=== PATIENT | male | born 1960 | race Caucasian/White ===

== ENCOUNTER 2018-01-27 10:25 | Emergency (ER) | payer SELFPAY ==
[~2018-01-27] VITALS: Ht 172.7 cm; Wt 85.0 kg
[~2018-01-27 10:25] MED LIST: CYCL-36 PO; IBUP-232 PO; Z.0.NO CURRENT MEDS
[2018-01-27] MEDS ORDERED: MORPHINE SULFATE 4 MG/ML INJ IV PUSH ONE ×2 (10:30→13:15)
[2018-01-27 10:33] VITALS: BP 197/73; PULSE 84; RESP 18; TEMP 98.3; O2SAT 100
[2018-01-27 11:03] LABS: AUTOMATED NEUTROPHIL # 6.5 TH/MM3 (1.8-7.7); BASOPHIL % 0.5 % (0.0-2.0); EOSINOPHIL # 0.1 TH/MM3 (0-0.4); EOSINOPHIL % 1.4 % (0.0-4.0); HEMATOCRIT 41.3 % (39.0-51.0); HEMOGLOBIN 14.5 GM/DL (13.0-17.0); LYMPH % 20.1 % (9.0-44.0); LYMPHOCYTE # 1.9 TH/MM3 (1.0-4.8); MEAN CORPUSCULAR HGB CONC 35.2 % (32.0-36.0); MEAN PLATELET VOLUME 8.3 FL (7.0-11.0); MONO % 9.2 % (0.0-8.0); MONOCYTE # 0.9 TH/MM3 (0-0.9); NEUT % 68.8 % (16.0-70.0); PLATELET COUNT 256 TH/MM3 (150-450); RED BLOOD COUNT 4.69 MIL/MM3 (4.50-5.90); RED CELL DISTRIBUTION WIDTH 13.2 % (11.6-17.2); WHITE BLOOD COUNT 9.5 TH/MM3 (4.0-11.0)
[2018-01-27 11:06] LABS: PROTHROMBIN TIME - PATIENT 10.1 SEC (9.8-11.6)
--- NOTE | 2018-01-27 11:17 | RADRPT ---
EXAM DATE/TIME: 01/27/2018 10:47 [facility] COMPARISON: None. INDICATIONS : <<Left sided pelvis pain after fall yesterday.>> MEDICAL HISTORY : None. SURGICAL HISTORY : Left hip replacement. ENCOUNTER: Initial ACUITY: 2 days PAIN SCORE: 10/10 LOCATION: Left pelvis FINDINGS: A single frontal view of the pelvis demonstrates previous left hip replacement. On this single AP vie w the prosthetic femoral head is at least subluxed and lies along the superior aspect of the acetabul ar cup. Mild osteophytes of the right hip. No acute fracture identified. CONCLUSION: 1. No acute fracture. Prosthetic left femoral head does not appear to be well-seated within the prost hetic acetabulum at the total hip replacement. Arik eDmpsey MD on January 27, 2018 at 11:13 Board Certified Radiologist. This report was verified electronically.
--- NOTE | 2018-01-27 11:31 | RADRPT ---
EXAM DATE/TIME: 01/27/2018 10:53 [facility] COMPARISON: PELVIS AP ONLY, January 27, 2018, 10:47. INDICATIONS : Left proximal femur pain after fall yesterday. MEDICAL HISTORY : None. SURGICAL HISTORY : Left hip replacement. ENCOUNTER: Initial ACUITY: 2 days PAIN SCORE: 10/10 LOCATION: Left proximal femur. FINDINGS: The patient is post left hip arthroplasty. The femoral component appears quite high riding in the ruperto tabular clot. It appears to be still within the top and as such exam would suggest severe polyethylen e wear. The visualized portion of pelvis and the left femur are intact. CONCLUSION: 1. The femoral component is quite high riding within the acetabular cup. I believe the head is still within the acetabular cup and probably represents some severe polyethylene wear. The hip should be ma nipulated clinically to ensure is not dislocated. 2. No acute fracture is seen. Puneet Bello MD on January 27, 2018 at 11:25 Board Certified Radiologist. This report was verified electronically.
[2018-01-27 11:34] LABS: ALBUMIN 4.2 GM/DL (3.4-5.0); AST (GOT) 34 U/L (15-37); BICARBONATE 23.1 MEQ/L (21.0-32.0); BLOOD UREA NITROGEN 12 MG/DL (7-18); CALCIUM 9.1 MG/DL (8.5-10.1); CHLORIDE 106 MEQ/L (98-107); GLOMERULAR FILTRATION RATE 69 ML/MIN (>89); GLUCOSE,RANDOM 108 MG/DL (74-106); SODIUM (NA) 139 MEQ/L (136-145)
[2018-01-27 11:37] LABS: ALKALINE PHOSPHATASE 49 U/L (45-117); ALT (GPT) 47 U/L (12-78); TOTAL BILIRUBIN ADULT 0.7 MG/DL (0.2-1.0); TOTAL PROTEIN 7.9 GM/DL (6.4-8.2)
[2018-01-27] MEDS ORDERED: IOHEXOL 350 MG/ML 10 ML VIAL (for RAD DIAG) IVCONTRAST ONE (12:29)
--- NOTE | 2018-01-27 12:33 | RADRPT ---
EXAM DATE/TIME: 01/27/2018 12:16 [facility] COMPARISON: No previous studies available for comparison. INDICATIONS : Trauma. Fell 13 feet yesterday. RADIATION DOSE: 60.93 CTDIvol (mGy) MEDICAL HISTORY : Hypertension. SURGICAL HISTORY : Left hip replacement. ENCOUNTER: Initial ACUITY: 1 day PAIN SCALE: 2/10 LOCATION: cranial TECHNIQUE: Multiple contiguous axial images were obtained of the head. Using automated exposure control and adj ustment of the mA and/or kV according to patient size, radiation dose was kept as low as reasonably a chievable to obtain optimal diagnostic quality images. DICOM format image data is available electro nically for review and comparison. FINDINGS: CEREBRUM: The ventricles are normal for age. No evidence of midline shift, mass lesion, hemorrhage or acute in farction. No extra-axial fluid collections are seen. POSTERIOR FOSSA: The cerebellum and brainstem are intact. The 4th ventricle is midline. The cerebellopontine angle i s unremarkable. EXTRACRANIAL: The visualized portion of the orbits is intact. SKULL: The calvaria is intact. No evidence of skull fracture. CONCLUSION: No acute disease. Maged Sheth MD on January 27, 2018 at 12:31 Board Certified Radiologist. This report was verified electronically.
--- NOTE | 2018-01-27 12:50 | RADRPT ---
EXAM DATE/TIME: 01/27/2018 12:22 [facility] COMPARISON: No previous studies available for comparison. INDICATIONS : Trauma. Fell 12 feet yesterday. IV CONTRAST: 95 cc Omnipaque 350 (iohexol) IV ORAL CONTRAST: No oral contrast ingested. RADIATION DOSE: 18.90 CTDIvol (mGy) MEDICAL HISTORY : Hypertension. SURGICAL HISTORY : Left hip replacement. ENCOUNTER: Initial ACUITY: 1 day PAIN SCALE: 7/10 LOCATION: Abdomen. TECHNIQUE: Volumetric scanning of the abdomen and pelvis was performed. Using automated exposure control and ad justment of the mA and/or kV according to patient size, radiation dose was kept as low as reasonably achievable to obtain optimal diagnostic quality images. DICOM format image data is available electro nically for review and comparison. FINDINGS: LOWER LUNGS: The visualized lower lungs are clear. LIVER: Homogeneous density without lesion. There is no dilation of the biliary tree. No calcified gallston es. SPLEEN: Normal size without lesion. PANCREAS: Within normal limits. KIDNEYS: Normal in size and shape. There is no mass, stone or hydronephrosis. ADRENAL GLANDS: Within normal limits. VASCULAR: There is no aortic aneurysm. BOWEL/MESENTERY: Diverticulosis without diverticulitis. There is no free intraperitoneal air or fluid. ABDOMINAL WALL: Within normal limits. RETROPERITONEUM: There is no lymphadenopathy. BLADDER: No wall thickening or mass. REPRODUCTIVE: Within normal limits. INGUINAL: There is no lymphadenopathy or hernia. MUSCULOSKELETAL: Orthopedic hardware in the left hip. There is prominent lucency involving the left acetabulum and fas cial rami and the left. There is minimal fracture along the left ischial rami. There is fracture of t he right L2 and L3 transverse processes. There is fracture of the right 11th posterior rib. Scoliosis and degenerative changes thoracolumbar spine. CONCLUSION: 1. Orthopedic hardware left hip with prominent lucency throughout the acetabulum. There is minimal fr acture along the initial rami and the left. 2. Fractures of the right L2 and L3 transverse processes. 3. Minimal fracture right 11th rib. 4. No abdominal visceral injury. 5. Diverticulosis of the colon. Maged Sheth MD on January 27, 2018 at 12:44 Board Certified Radiologist. This report was verified electronically.
--- NOTE | 2018-01-27 12:58 | RADRPT ---
EXAM DATE/TIME: 01/27/2018 12:22 [facility] COMPARISON: CT ABDOMEN & PELVIS W CONTRAST, January 27, 2018, 12:22. INDICATIONS : Trauma fell 12 feet yesterday neck pain RADIATION DOSE: 20.64 CTDIvol (mGy) RADIATION DOSE: 18.90 CTDIvol (mGy) MEDICAL HISTORY : Hypertension. SURGICAL HISTORY : Left hip replacement. ENCOUNTER: Initial ACUITY: 1 day PAIN SCALE: 7/10 LOCATION: neck. TECHNIQUE: Volumetric scanning of the cervical spine was performed. Multiplanar reconstructions in the sagittal, coronal and oblique axial planes were performed. Using automated exposure control and adjustment o f the mA and/or kV according to patient size, radiation dose was kept as low as reasonably achievable to obtain optimal diagnostic quality images. DICOM format image data is available electronically f or review and comparison. FINDINGS: VERTEBRAE: Normal vertebral body height. ALIGNMENT: No evidence of subluxation. C2-C3: The bony spinal canal is normal in size. No evidence of disc bulge or herniation. The neural forami na are bilaterally patent. C3-C4: The bony spinal canal is normal in size. No evidence of disc bulge or herniation. The neural forami na are bilaterally patent. C4-C5: The bony spinal canal is normal in size. No evidence of disc bulge or herniation. The neural forami na are bilaterally patent. C5-C6: The bony spinal canal is normal in size. No evidence of disc bulge or herniation. The neural forami na are bilaterally patent. C6-C7: The bony spinal canal is normal in size. No evidence of disc bulge or herniation. The neural forami na are bilaterally patent. C7-T1: The bony spinal canal is normal in size. No evidence of disc bulge or herniation. The neural forami na are bilaterally patent. CONCLUSION: No fracture or subluxation. Maged Sheth MD on January 27, 2018 at 12:54 Board Certified Radiologist. This report was verified electronically.
--- NOTE | 2018-01-27 13:05 | RADRPT ---
EXAM DATE/TIME: 01/27/2018 12:22 [facility] COMPARISON: No previous studies available for comparison. INDICATIONS : Trauma. Fell 12 feet yesterday. RADIATION DOSE: 20.93 CTDIvol (mGy) MEDICAL HISTORY : Hypertension. SURGICAL HISTORY : Left hip replacement. ENCOUNTER: Initial ACUITY: 1 day PAIN SCALE: 7/10 LOCATION: neck TECHNIQUE: Volumetric scanning of the lumbar spine was performed. Multiplanar reconstructions in the sagittal, coronal and oblique axial planes were performed. Using automated exposure control and adjustment of the mA and/or kV according to patient size, radiation dose was kept as low as reasonably achievable t o obtain optimal diagnostic quality images. DICOM format image data is available electronically for review and comparison. FINDINGS: VERTEBRAE: Normal vertebral body height. No compression fracture. Fractures of the right L1, L2 and L3 transvers e processes. There is scoliosis and degenerative changes. ALIGNMENT: No evidence of subluxation. T12-L1: The thecal sac has a normal diameter. No evidence of disc bulge or protrusion. The neural foramina are patent bilaterally. L1-L2: Mild broad-based disc bulge without canal stenosis. The neural foramina are patent bilaterally. L2-L3: Mild broad-based disc bulge without canal stenosis. The neural foramina are patent bilaterally. L3-L4: Mild broad-based disc bulge without canal stenosis. The neural foramina are patent bilaterally. L4-L5: Mild broad-based disc bulge without canal stenosis. The neural foramina are patent bilaterally. L5-S1: Mild asymmetric right-sided protrusion abuts the ventral thecal sac and right S1 nerve root. No canal stenosis. The neural foramina are patent bilaterally. CONCLUSION: 1. Right-sided protrusion at L5-S1. No canal stenosis. 2. Multilevel disc bulges without canal stenosis. 3. Degenerative changes. 4. Fracture of the right L1-L3 transverse processes. Maged Sheth MD on January 27, 2018 at 13:00 Board Certified Radiologist. This report was verified electronically.
[2018-01-27 13:08] VITALS: BP 157/78; PULSE 77; RESP 18; O2SAT 100
--- NOTE | 2018-01-27 13:08 | RADRPT ---
EXAM DATE/TIME: 01/27/2018 12:22 [facility] COMPARISON: No previous studies available for comparison. INDICATIONS : Trauma. Fell 12 feet yesterday. RADIATION DOSE: 35.86 CTDIvol (mGy) ; Combined studies - Thoracic Spine/Lumbar Spine MEDICAL HISTORY : Hypertension. SURGICAL HISTORY : Left hip replacement. ENCOUNTER: Initial ACUITY: 1 day PAIN SCALE: 8/10 LOCATION: Bilateral Thoracic spine. TECHNIQUE: Volumetric scanning of the thoracic spine was performed. Multiplanar reconstructions in the sagittal , coronal and oblique axial planes were performed. Using automated exposure control and adjustment o f the mA and/or kV according to patient size, radiation dose was kept as low as reasonably achievable to obtain optimal diagnostic quality images. DICOM format image data is available electronically f or review and comparison. FINDINGS: The vertebral bodies of the thoracic spine are in normal alignment without evidence of subluxation. Vertebral body height is maintained. No fractures are seen. Prominent degenerative changes and dextr oscoliosis. Multiple anterior endplate osteophytes. Old mild to moderate compression deformity at T10 . Fracture of the right T10 transverse process of indeterminate age. T1-T2: Normal. T2-T3: The thecal sac has a normal diameter. No evidence of disc bulge or protrusion. T3-T4: The thecal sac has a normal diameter. No evidence of disc bulge or protrusion. T4-T5: The thecal sac has a normal diameter. No evidence of disc bulge or protrusion. T5-T6: The thecal sac has a normal diameter. No evidence of disc bulge or protrusion. T6-T7: The thecal sac has a normal diameter. No evidence of disc bulge or protrusion. T7-T8: The thecal sac has a normal diameter. No evidence of disc bulge or protrusion. T8-T9: The thecal sac has a normal diameter. No evidence of disc bulge or protrusion. T9-T10: The thecal sac has a normal diameter. No evidence of disc bulge or protrusion. T10-T11: The thecal sac has a normal diameter. No evidence of disc bulge or protrusion. T11-T12: The thecal sac has a normal diameter. No evidence of disc bulge or protrusion. T12-L1: The thecal sac has a normal diameter. No evidence of disc bulge or protrusion. CONCLUSION: 1. Old moderate compression deformity T10. 2. Degenerative changes without definite acute fracture. 3. Fracture of the right transverse process at T10, of indeterminate age. Maged Sheth MD on January 27, 2018 at 13:03 Board Certified Radiologist. This report was verified electronically.
--- NOTE | 2018-01-27 13:27 | PD ---
HPI Chief Complaint: Fall Time Seen by Provider: 10:30 Travel History International Travel<30 days: No Contact w/Intl Traveler<30days: No Traveled to known affect area: No History of Present Illness HPI Patient is a 57-year-old male who comes in complaining of back pain after he fell off the roof yesterday. He says he was trying to reach single his house when he slipped and fell. He does report loss of consciousness. He did get up with help from his and walk into the house. He complains of pain to his left hip and low back. He denies numbness or tingling. He denies headache. He has not taken anything for his pain. Severity is moderate. PFSH Past Medical History Hypertension: Yes Triglycerides - High: Yes ?: Not Past Surgical History Other Surgery: Yes (Skin graft to left forearm from snake bite) Social History Alcohol Use: Yes (on occasion) Tobacco Use: Yes Substance Use: Yes (THC daily) Allergies-Medications (Allergen,Severity, Reaction): Coded Allergies: No Known Allergies (Verified Adverse Reaction, Unknown, 01/27/18) Reported Meds & Prescriptions Reported Meds & Active Scripts Active Percocet (Oxycodone-Acetaminophen) 5-325 mg Tab 1 Tab PO Q6H PRN Review of Systems Except as stated in HPI: all other systems reviewed are Neg General / Constitutional: No: Fever, Chills Eyes: No: Blurred Vision HENT: No: Headaches Cardiovascular: No: Chest Pain or Discomfort Respiratory: No: Shortness of Breath Gastrointestinal: No: Nausea, Vomiting, Abdominal Pain Musculoskeletal: Positive: Pain Skin: No Rash, No Change in Pigmentation Neurologic: No: Sensory Disturbance Physical Exam Narrative GENERAL: Awake and alert, no acute distress. SKIN: Focused skin assessment warm/dry. No wounds. HEAD: Atraumatic. Normocephalic. EYES: Pupils equal and round. No scleral icterus. Extraocular movements intact. ENT: Mucous membranes pink and moist. NECK: Trachea midline. No JVD. CARDIOVASCULAR: Regular rate and rhythm. No murmur appreciated. RESPIRATORY: No accessory muscle use. Clear to auscultation. Breath sounds equal bilaterally. GASTROINTESTINAL: Abdomen soft, non-tender, nondistended. MUSCULOSKELETAL: No obvious deformities. No clubbing. No cyanosis. No edema. Tender to palpation to the right flank. No thoracic or lumbar tenderness. Pain with movement of the left hip, no tenderness to palpation of the pelvis. NEUROLOGICAL: Awake and alert. No obvious cranial nerve deficits. Motor grossly within normal limits. Normal speech. PSYCHIATRIC: Appropriate mood and affect; insight and judgment normal. Data Data Last Documented VS Vital Signs Date Time Temp Pulse Resp B/P (MAP) Pulse Ox O2 Delivery O2 Flow Rate FiO2 01/27/18 14:43 70 18 135/89 (104) 100 Room Air 01/27/18 10:[address] Brain W/O Iv Contrast(Rout) (01/27/18 ) Ct Cerv Spine W/O Contrast (01/27/18 ) Ct Thor Spine W/O Contrast (01/27/18 ) Ct Lumb Spine W/O Contrast (01/27/18 ) Ct Abd/Pel W Iv Contrast(Rout) (01/27/18 ) Pelvis, Ap Only (Routine) (01/27/18 ) Complete Blood Count With Diff (01/27/18 10:30) Comprehensive Metabolic Panel (01/27/18 10:30) Act Partial Throm Time (Ptt) (01/27/18 10:30) Prothrombin Time / Inr (Pt) (01/27/18 10:30) Morphine Inj (Morphine Inj) (01/27/18 10:30) Femur (Ap & Lat/2vws) (01/27/18 ) Iohexol 350 Inj (Omnipaque 350 Inj) (01/27/18 12:29) Morphine Inj (Morphine Inj) (01/27/18 13:15) Oxycodone-Acetamin 5-325 Mg (Percocet (01/27/18 14:30) Resp Incentive Spirometry (01/27/18 ) Ed Discharge Order (01/27/18 14:51) Collar [place] (01/27/18 ) Labs Laboratory Tests Test 01/27/18 10:30 White Blood Count 9.5 TH/MM3 Red Blood Count 4.69 MIL/MM3 Hemoglobin 14.5 GM/DL Hematocrit 41.3 % Mean Corpuscular Volume 88.0 FL Mean Corpuscular Hemoglobin 31.0 PG Mean Corpuscular Hemoglobin Concent 35.2 % Red Cell Distribution Width 13.2 % Platelet Count 256 TH/MM3 Mean Platelet Volume 8.3 FL Neutrophils (%) (Auto) 68.8 % Lymphocytes (%) (Auto) 20.1 % Monocytes (%) (Auto) 9.2 % Eosinophils (%) (Auto) 1.4 % Basophils (%) (Auto) 0.5 % Neutrophils # (Auto) 6.5 TH/MM3 Lymphocytes # (Auto) 1.9 TH/MM3 Monocytes # (Auto) 0.9 TH/MM3 Eosinophils # (Auto) 0.1 TH/MM3 Basophils # (Auto) 0.0 TH/MM3 CBC Comment DIFF FINAL Differential Comment Prothrombin Time 10.1 SEC Prothromb Time International Ratio 1.0 RATIO Activated Partial Thromboplast Time 24.1 SEC Blood Urea Nitrogen 12 MG/DL Creatinine 1.10 MG/DL Random Glucose 108 MG/DL Total Protein 7.9 GM/DL Albumin 4.2 GM/DL Calcium Level 9.1 MG/DL Alkaline Phosphatase 49 U/L Aspartate Amino Transf (AST/SGOT) 34 U/L Alanine Aminotransferase (ALT/SGPT) 47 U/L Total Bilirubin 0.7 MG/DL Sodium Level 139 MEQ/L Potassium Level 4.1 MEQ/L Chloride Level 106 MEQ/L Carbon Dioxide Level 23.1 MEQ/L Anion Gap 10 MEQ/L Estimat Glomerular Filtration Rate 69 ML/MIN MDM Medical Decision Making Medical Screen Exam Complete: Yes Emergency Medical Condition: Yes Medical Record Reviewed: Yes Differential Diagnosis ICH versus C-spine fracture versus thoracic spine fracture versus lumbar spine fracture versus pelvic fracture Narrative Course Patient is a 57-year-old male who comes in after falling off the roof. Exam shows pain to the right side of the back as well as pain with movement of his left hip. IV established, labs sent. Labs show no acute abnormalities. Given pain medicine. Last 24 hours Impressions [address] Spine CT 01/27/18 0000 Signed Impressions: Service Date/Time: Saturday, January 27, 2018 12:22 - CONCLUSION: 1. Old moderate compression deformity T10. 2. Degenerative changes without definite acute fracture. 3. Fracture of the right transverse process at T10, of indeterminate age. Maged Sheth MD Pelvis X-Ray 01/27/18 0000 Signed Impressions: Service Date/Time: Saturday, January 27, 2018 10:47 - CONCLUSION: 1. No acute fracture. Prosthetic left femoral head does not appear to be well-seated within the prosthetic acetabulum at the total hip replacement. Arik Dempsey MD Lumbar Spine CT 01/27/18 0000 Signed Impressions: Service Date/Time: Saturday, January 27, 2018 12:22 - CONCLUSION: 1. Right- sided protrusion at L5-S1. No canal stenosis. 2. Multilevel disc bulges without canal stenosis. 3. Degenerative changes. 4. Fracture of the right L1-L3 transverse processes. Maged Sheth MD Head CT 01/27/18 Signed Impressions: Service Date/Time: Saturday, January 27, 2018 12:16 - CONCLUSION: No acute disease. Maged Sheth MD Femur X-Ray 01/27/18 Signed Impressions: Service Date/Time: Saturday, January 27, 2018 10:53 - CONCLUSION: 1. The femoral component is quite high riding within the acetabular cup. I believe the head is still within the acetabular cup and probably represents some severe polyethylene wear. The hip should be manipulated clinically to ensure is not dislocated. 2. No acute fracture is seen. Puneet Bello MD Cervical Spine CT 01/27/18 Signed Impressions: Service Date/Time: Saturday, January 27, 2018 12:22 - CONCLUSION: No fracture or subluxation. Maged Sheth MD Abdomen/Pelvis CT 01/27/18 Signed Impressions: Service Date/Time: Saturday, January 27, 2018 12:22 - CONCLUSION: 1. Orthopedic hardware left hip with prominent lucency throughout the acetabulum. There is minimal fracture along the initial rami and the left. 2. Fractures of the right L2 and L3 transverse processes. 3. Minimal fracture right 11th rib. 4. No abdominal visceral injury. 5. Diverticulosis of the colon. Maged Sheth MD I spoke with Dr. Serrano of neurosurgery regarding the L2 and L3 fractures, he says nothing to be done. I spoke with Dr. Campos of orthopedics regarding the hip and pelvis, he also reports nothing to be done. Patient given additional pain medicine. He says he would like to try and go home. He is given an incentive spirometer and advised to use it several times a day. Given a prescription for Percocet. Advised to follow-up with orthopedics. Advised return anytime for any worsening symptoms. Diagnosis Primary Impression: Fall Qualified Codes: W19.XXXA - Unspecified fall, initial encounter Additional Impressions: Pelvic fracture Qualified Codes: S32.602A - Unspecified fracture of left ischium, initial encounter for closed fracture Fracture of lumbar spine Qualified Codes: S32.008A - Other fracture of unspecified lumbar vertebra, initial encounter for closed fracture Rib fracture Qualified Codes: S22.31XA - Fracture of one rib, right side, initial encounter for closed fracture Referrals: Deonte Campos MD call for appointment Patient Instructions: General Instructions, Pelvic Fracture (ED), Rib Fracture (ED), Thoracolumbar Fracture (ED) Additional Instructions: Take pain medicine as needed. Use the incentive spirometer several times per day to avoid óscar pneumonia. Follow up with orthopedics. Return to the ED as needed for any worsening symptoms. Scripts Oxycodone-Acetaminophen (Percocet) 5-325 mg Tab 1 TAB PO Q6H Y for PAIN, #20 TAB 0 Refills Prov: Allyn Lombardo MD 01/27/18 Disposition: 01 DISCHARGE HOME Condition: Stable Allyn Lombardo MD Jan 27, 2018 13:27
[2018-01-27] MEDS ORDERED: oxyCODONE/ACETAMINOPHEN 5 MG/325 MG TAB PO ONE (14:30)
[2018-01-27 14:43] VITALS: BP 135/89; PULSE 70; RESP 18; O2SAT 100
[2018-01-27] MEDS ORDERED: PERC5TAB12 PO (14:50)
== END 2018-01-27 15:32 | disposition home or self-care (01) ==
LOC: NEPE 10:25
DX: S32.602A Unspecified fracture of left ischium, initial encounter for closed fracture (principal); S32.008A Other fracture of unspecified lumbar vertebra, initial encounter for closed fracture; S22.31XA Fracture of one rib, right side, initial encounter for closed fracture; W13.2XXA Fall from, out of or through roof, initial encounter; Y93.H3 Activity, building and construction; Y92.008 Other place in unspecified non-institutional (private) residence as the place of occurrence of the external cause
CPT/HCPCS: 70450; 72125; 72128; 72131; 72170; 73552; 74177; 80053; 85025; 85610; 85730; 96374; 96375; 99285; J2270; L0150; Q9967